=== PATIENT | female | born 1985 | race Caucasian/White ===

== ENCOUNTER 2022-06-12 20:00 | Outpatient (CLI) | payer BC ==
--- NOTE | 2022-06-12 21:58 | Ultrasound Report ---
PROCEDURE: OB First Trimester w/TV INDICATIONS: THREATENED , VAGINAL BLEEDING IN OUTSIDE/PRIOR DATING DATA: Last menstrual period (LMP): 04/29/2022. LMP-based estimated date of delivery (EMERY): 02/03/2023. First dating scan (date and location): 06/12/2022. Estimated date of delivery (EMERY) from first dating scan: 02/03/2023. TECHNIQUE: Real-time scanning was performed of the fetus and maternal pelvic organs, with image documentation. Endovaginal scanning was also performed to better visualize the fetus and maternal ovaries. COMPARISON: None FINDINGS: Embryo: Intrauterine gestational sac diameter is 3.0 cm. Single pole identified with a crown-r ump length of 5.4 mm corresponding to 6 week 2 day gestation. heart rate at 121 bpm. Normal yol k sac seen. Maternal organs: Ovaries are normal and demonstrate a right corpus luteum. The cervix is closed. There are several nabothian cysts present. There is moderate decidual response and 2 small subchorionic hemorrhages measuring 1.1 and 1.6 cm.. IMPRESSION: 1. Single intrauterine with gestational age of 6 weeks 2 days and estimated due date 2022. 2. Closed cervix. 3. There are 2 small perigestational hemorrhage sites which maybe implantation bleeds. 4. Preliminary results given by the manager continuous improvement to the ordering provider immediately following the st udy. Reviewed by: Evelyn Soria MD on 06/12/2022 9:56 PM PST Approved by: Evelyn Soria MD on 06/12/2022 9:56 PM PST Station ID: [id number]
== END 2022-06-12 20:01 | disposition home or self-care (01) ==
LOC: DI 20:00
PROVIDERS: ATTEND Nurse Practitioner Obstetrics & Gynecology
DX: O20.0 Threatened abortion (principal); Z3A.01 Less than 8 weeks gestation of pregnancy
CPT/HCPCS: 84702

== ENCOUNTER 2022-07-10 17:10 | Outpatient (CLI) | payer BC ==
[2022-07-10 17:43] LABS: BASOPHILS # (AUTO) 0.1 10^3/uL (0.0-0.1); BASOPHILS % (AUTO) 0.5 %; EOSINOPHILS # (AUTO) 0.1 10^3/uL (0.0-0.7); EOSINOPHILS % (AUTO) 0.9 %; HCT - HEMATOCRIT 37.8 % (37.0-47.0); HGB - HEMOGLOBIN 12.7 g/dL (12.0-16.0); LYMPHOCYTES # (AUTO) 2.1 10^3/uL (1.5-3.5); LYMPHOCYTES % (AUTO) 20.5 %; MEAN CORPUSCULAR HEMOGLOBIN 30.1 pg (27.0-31.0); MEAN CORPUSCULAR HGB CONC 33.6 g/dL (32.0-36.0); MEAN CORPUSCULAR VOLUME 89.6 fL (81.0-99.0); MEAN PLATELET VOLUME 10.1 fL (7.9-10.8); MONOCYTES # (AUTO) 0.5 10^3/uL (0.0-1.0); MONOCYTES % (AUTO) 4.5 %; NEUTROPHILS # (AUTO) 7.7 10^3/uL (1.5-6.6); NEUTROPHILS % (AUTO) 73.3 %; PLT - PLATELET COUNT 320 10^3/uL (130-450); RED BLOOD COUNT 4.22 10^6/uL (4.20-5.40); RED CELL DISTRIBUTION WIDTH 12.3 % (12.0-15.0); WHITE BLOOD COUNT 10.5 x10^3/uL (4.8-10.8)
[2022-07-11 05:11] LABS: HBsAG SCREEN Negative (Negative)
[2022-07-11 07:09] LABS: RPR Non Reactive (Non Reactive)
[2022-07-11 08:10] LABS: HCV AB Non Reactive (Non Reactive); HIV SCREEN 4TH GENERATION Non Reactive (Non Reactive); VARICELLA-ZOSTER AB IGG 417 index (Immune >165)
== END 2022-07-10 17:11 | disposition home or self-care (01) ==
LOC: LAB 17:10
PROVIDERS: ATTEND Nurse Practitioner Obstetrics & Gynecology
DX: Z36.89 Encounter for other specified antenatal screening (principal)
CPT/HCPCS: 36415; 85025; 86592; 86762; 86787; 86803; 86850; 86900; 86901; 87340; 87389

== ENCOUNTER 2022-11-06 14:27 | Outpatient (CLI) | payer OTHER ==
[2022-11-06 15:43] LABS: HCT - HEMATOCRIT 33.6 % (37.0-47.0); HGB - HEMOGLOBIN 11.3 g/dL (12.0-16.0); MEAN CORPUSCULAR HEMOGLOBIN 30.6 pg (27.0-31.0); MEAN CORPUSCULAR HGB CONC 33.6 g/dL (32.0-36.0); MEAN CORPUSCULAR VOLUME 91.1 fL (81.0-99.0); MEAN PLATELET VOLUME 9.7 fL (7.9-10.8); RED BLOOD COUNT 3.69 10^6/uL (4.20-5.40); RED CELL DISTRIBUTION WIDTH 12.7 % (12.0-15.0); WHITE BLOOD COUNT 10.8 x10^3/uL (4.8-10.8)
== END 2022-11-06 14:28 | disposition home or self-care (01) ==
LOC: LAB 14:27
PROVIDERS: ATTEND Nurse Practitioner Obstetrics & Gynecology
DX: Z36.9 Encounter for antenatal screening, unspecified (principal); Z67.91 Unspecified blood type, Rh negative
CPT/HCPCS: 36415; 82950; 85027; 86850

== ENCOUNTER 2022-11-16 07:34 | Outpatient (CLI) | payer OTHER ==
[2022-11-16 08:12] LABS: GTT GLUCOSE,FASTING 92 mg/dL (74-109)
== END 2022-11-16 07:35 | disposition home or self-care (01) ==
LOC: LAB 07:34
PROVIDERS: ATTEND Nurse Practitioner Obstetrics & Gynecology
DX: O99.810 Abnormal glucose complicating pregnancy (principal)
CPT/HCPCS: 36415; 82951; 82952

== ENCOUNTER 2023-02-12 20:31 | Outpatient (CLI) | payer OTHER ==
--- NOTE | 2023-02-12 21:12 | PROVIDER PROGRESS NOTE ---
- HPI Chief Complaint: Other - Procedures OB Procedure Performed: NST Diagnosis/Indication for NST: Other - Plan Plan: Doris is a 37yo @ 41.2wks gestation by LMP c/w 8.4wk U/S presents to [facility] for outpatient pierre cervical ripening balloon placement in anticipation for medical induction of labor tomorrow morning. She denies vaginal bleeding or leakage of fluid. She denies contractions. She has felt some intermittent estrada hutchison contractions over the past couple of days but nothing consistent or painful. She reports +FM. Pierre cervical ripening balloon placed with 60cc NS intrauterine balloon and 60cc NS vaginal balloon. Pt tolerated placement well. NST reactive. FHR baseline 120s, moderate variability, + accels, no decels Contractions palpate mild intermittently with soft resting tone. Pt released home with precautions. Pt has emergency contact number. Return in 12 hours for removal or sooner PRN. Pt verbalized understanding and agrees to above plan. She denies further questions or concerns at this time.
[2023-02-12 21:16] VITALS: BP 117/85; O2SAT 99
--- NOTE | 2023-02-12 21:54 | Labor Flowsheet ---
Labor Flowsheet Datetime Report Generated by CPN: 02/12/2023 21:54 Datetime: 02/12/2023 21:04 Pulse: 60 SpO2 (%): 98 Datetime: 02/12/2023 20:58 MEDICATIONS Cervical Ripening Agents: Bro Balloon Medication Comments: 60 ml/60 ml, placed via provider Datetime: 02/12/2023 20:45 VITAL SIGNS NBP Sys/Nicolette/Mean (mmHg): 117 : 85 : 92 Temperature (C): 36.7 MATERNAL ASSESSMENT Headache: Generalized Datetime: 02/12/2023 20:40 COMMUNICATION Communication: RN at Bedside; Provider at Bedside
== END 2023-02-12 21:45 | disposition home or self-care (01) ==
LOC: WFO 20:31 → FBP 20:33 → WFO 21:45
PROVIDERS: ATTEND Nurse Practitioner Obstetrics & Gynecology
DX: O48.0 Post-term pregnancy (principal); Z3A.41 41 weeks gestation of pregnancy
CPT/HCPCS: 59025; 59200

== ENCOUNTER 2023-02-13 09:25 | Inpatient (IN) | payer OTHER ==
[2023-02-13] MEDS ORDERED: TRANEXAMIC ACID IN NACL 1,000 MG/100 ML BAG IV PRN (09:56)
[2023-02-13] MEDS ORDERED: hydrALAZINE INJ 20 MG/ML VIAL IVP PRN ×2 (09:56)
[2023-02-13] MEDS ORDERED: SODIUM CHLORIDE FLUSH 0.9% 10 ML SYRINGE IVP PRN (09:56)
[2023-02-13] MEDS ORDERED: TERBUTALINE 1 MG/ML VIAL SUBQ PRN (09:56)
[2023-02-13] MEDS ORDERED: fentaNYL 100 MCG/2 ML VIAL IVP PRN (09:56)
[2023-02-13] MEDS ORDERED: lidocaine 1% 20 ML MDV ID PRN (09:56)
[2023-02-13] MEDS ORDERED: CARBOPROST TROMETHAMINE 250 MCG/ML AMP IM PRN (09:56)
[2023-02-13] MEDS ORDERED: miSOPROStoL 200 MCG TABLET PR PRN (09:56)
[2023-02-13] MEDS ORDERED: OXYTOCIN 10 UNIT/ML VIAL IM PRN (09:56)
[2023-02-13] MEDS ORDERED: METHYLERGONOVINE 0.2 MG/ML VIAL IM PRN (09:56)
[2023-02-13] MEDS ORDERED: NIFEdipine 10 MG CAPSULE PO PRN (09:56)
[2023-02-13] MEDS ORDERED: LABETALOL 20 MG/4 ML SYRINGE IVP PRN ×3 (09:56)
[2023-02-13] MEDS ORDERED: LACTATED RINGERS 1,000 ML IV PRN (09:56)
[2023-02-13] MEDS ORDERED: OXYTOCIN/SODIUM CHLORIDE 500 ML IV PRN (09:56)
[2023-02-13] MEDS ORDERED: miSOPROStoL 200 MCG TABLET BC PRN (09:56)
[2023-02-13] MEDS ORDERED: SODIUM CHLORIDE FLUSH 0.9% 10 ML SYRINGE IVP SCH (10:00)
--- NOTE | 2023-02-13 10:01 | HISTORY & PHYSICAL EXAMINATION ---
Admit History - Visit Reason Visit Reason: Other - : 1 Parity: 0 Premature: 0 Ectopic: 0 : 0 Care: positive: [facility] Risk/History: positive: None Complications This : positive: None - Mother's Labs Mother's Blood Type: positive: B Mother's RH: positive: Negative GBS: positive: Group B Step Negative Rubella Status: positive: Immune - HPI Diagnosis/Indication for NST: Other Vital Signs Temperature 36.9 C 02/13/23 09:50 Heart Rate 77 02/13/23 09:50 Respiratory Rate 16 02/13/23 09:50 Blood Pressure 129/85 H 02/13/23 09:50 O2 Saturation 100 02/13/23 09:50 Temperature 36.9 C 02/13/23 09:50 Heart Rate 77 02/13/23 09:50 Respiratory Rate 16 02/13/23 09:50 Blood Pressure 129/85 H 02/13/23 09:50 O2 Saturation 100 02/13/23 09:50 If not protocol: Oxygen Flow, liters/minute - NST Procedure NST Procedure Start Time 20:45 Stop Time 21:40 - Results and Plan Findings/Impression: NST reassuring. FHR baseline 120s, moderate variability, + accels, no decels Contractions palpate mild intermittently with soft resting tone Review of Systems - Constitutional Constitutional: denies: Fatigue, Fever, Chills, Malaise - Eyes Eyes: denies: Blurred vision, Spots in vision, Dipolpia - Cardiovascular Cariovascular: denies: Irregular heart rate, Palpitations, Chest pain, Edema - Respiratory Respiratory: denies: Cough, Wheezing, SOB at rest - Gastrointestinal Gastrointestinal: denies: Constipation, Diarrhea, Nausea, Vomiting - Genitourinary Genitourinary: denies: Dysuria, Frequency - Integumentary Integumentary: denies: Rash, Pruritis - Neurological Neurological: denies: Headache - Psychiatric Psychiatric: reports: Anxiety. denies: Depression Physical - Abdominal Exam Vital Signs: Temp Pulse Resp BP Pulse Ox O2 Flow Rate 36.9 C 77 16 129/85 H 100 02/13/23 09:50 02/13/23 09:50 02/13/23 09:50 02/13/23 09:50 02/13/23 09:50 Contraction Intensity: positive: Mild Uterine Resting Tone: positive: Soft - Monitoring Heart Rate Baseline: 120 Strip Review: positive: Category I - Presentation Presentation: positive: Vertex - Vaginal Exam Membranes: positive: Membranes ruptured Dilation (in cm): 5 Effacement (%): 100 Station: positive: -2 Cervical Position: positive: Midposition - Speculum Exam Speculum Exam Performed: positive: No Plan for Labor - Plan For Labor I expect patient to be DC'd or transferred within 96 hours.: Yes Plan for Labor: HPI: This 37yo @ 41.3wks gestation by LMP c/w 8.4wk U/S presents to [facility] for medical induction of labor secondary to postdates . She had a cervical ripening balloon placed 12 hours ago for pre-induction cervical ripening. Upon arrival the cervical ripening balloon was removed and pt tolerated removal well. SVE 5/100/-2 and vertex with intact membranes. AROM occurred for induction of labor and was noted to be a moderate amount of clear fluid. FHR baseline 120s, moderate variability, + accels, no decels. Contra ctions palpate mild intermittently with soft resting tone. She has been a patient of [facility] for the duration of her which has been complicated by her advanced maternal age. She did have an elevated 1 hour glucose screening but her 3 hour glucose was WNL. She will be admitted to [facility] for medical induction of labor. She is supported by her partner Jarett, her sister, and her sister in law. Dating criteria: LMP: 04/29/2022 Initial U/S @ 8.4wks c/w LMP dating Serial exams - agree Medical Hx: Melanoma, anxiety Surgical Hx: Arthroscopic left knee (2004), Egg retrieval (2000), Labial cyst removal (2020); Labiaplasty (2020 s/p past trauma); Melanoma removal (2016); [place] teeth removal (2002) Social Hx: Monogamous with male partner. Stopped drinking alcohol due to . Denies current use of tobacco, marijuana or other recreational drugs. Reports that she is safe in current relationship. Family Hx: Ovarian cancer - MGM; Pancreatic cancer - PGM; Skin cancer - PGM, PGF, Mother (caused age age 62, melanoma) Denies family history of congenital anomalies, Cystic Fibrosis or chromosomal abnormalities. Allergies: NKDA, stonefruit Medications: PNV course: B negative, antibody negative Rubella immune; varicella immune RPR non-reactive, HIV non-reactive Hep B neg, Hep C neg Initial U/S @ 8.4wks c/w LMP dating NIPS - negative FAS WNL. Posterior placenta, no previa. Size c/w dating (EFW 76%tile). Glucola 1hr - 141 3 hour GTT WNL (92, 144, 110, 83) COVID-19 vaccine: fully vaccinated x 3 Tdap - third trimester Rhogam - 11/18/2022 GBS negative Physical exam: Normocephalic, atraumatic Heart RRR w/o M/G/R Lungs CTAB Abdomen gravid, soft, nontender FHR baseline 120s, moderate variability, + accels, no decels Contractions palpate mild intermittently with soft resting tone EFW 3800g SVE 5/100/-2 and vertex AROM occurred for a moderate amount of clear fluid Bilateral LE's no edema Mood is good Assessment: 37yo @ 41.3wks gestation Postdates Advanced maternal age FHR Category I GBS negative Rh negative Plan: Admit to [facility] for medical induction of labor secondary to postdates . AROM then expectant management x 12 hours. Intermittent heart rate auscultation. Jacuzzi PRN. Nitrous oxide PRN. Epidural per maternal request. Anticipate .
[2023-02-13 10:42] LABS: BASOPHILS % (AUTO) 0.3 %; EOSINOPHILS % (AUTO) 0.1 %; HCT - HEMATOCRIT 36.1 % (37.0-47.0); HGB - HEMOGLOBIN 12.2 g/dL (12.0-16.0); LYMPHOCYTES # (AUTO) 1.5 10^3/uL (1.5-3.5); LYMPHOCYTES % (AUTO) 13.6 %; MEAN CORPUSCULAR HGB CONC 33.8 g/dL (32.0-36.0); MEAN CORPUSCULAR VOLUME 88.9 fL (81.0-99.0); MEAN PLATELET VOLUME 11.9 fL (7.9-10.8); MONOCYTES # (AUTO) 0.6 10^3/uL (0.0-1.0); MONOCYTES % (AUTO) 5.6 %; NEUTROPHILS # (AUTO) 8.9 10^3/uL (1.5-6.6); PLT - PLATELET COUNT 237 10^3/uL (130-450); RED BLOOD COUNT 4.06 10^6/uL (4.20-5.40); RED CELL DISTRIBUTION WIDTH 12.7 % (12.0-15.0); WHITE BLOOD COUNT 11.1 x10^3/uL (4.8-10.8)
[2023-02-13 10:51] LABS: ALBUMIN 3.5 g/dL (3.2-5.5); ALBUMIN/GLOBULIN RATIO 1.1 (1.0-2.2); BILIRUBIN,TOTAL 0.4 mg/dL (0.2-1.0); CALCIUM 9.2 mg/dL (8.5-10.3); CREATININE 0.8 mg/dL (0.6-1.3); POTASSIUM 3.9 mmol/L (3.5-4.5); TOTAL PROTEIN 6.7 g/dL (6.4-8.9)
[2023-02-13] MEDS ORDERED: diphenhydrAMINE INJ 50 MG/ML VIAL IVP PRN (16:55)
--- NOTE | 2023-02-13 17:05 | PROVIDER PROGRESS NOTE ---
Labor Progress Note - Uterine Monitoring Uterine Monitoring Mode: positive: External toco Contraction Frequency (min/apart): 2-4 Contraction Intensity: positive: Strong Uterine Resting Tone: positive: Soft - Monitoring Monitor Mode: positive: External ultrasound Heart Rate Baseline: 120d Heart Rate Variability: positive: Moderate (6-25 bmp) Accelerations: positive: Present, 15x15 Decelerations: positive: None Strip Review: positive: Category I - Vaginal Exam Dilation (in cm): 7 Effacement (%): 100 Station: -1 - Labor Progress Note Labor Progress Note/Additional Text: S: Breathing through contractions currently in left side lying position. She is feeling a lot of pressure with her contractions and in a side lying position is able to tolerate them better whereas in an upright position she was feeling pressure like she had to push. She has had bloody show and continued vaginal leakage of fluid that remains clear. She is coping well and is well supported by her sisters, her , and her regulatory affairs portfolio leader. O: FHR baseline 120s, moderate variability, + accels, no decels Contractions palpate strong every 2-4 minutes with soft resting tone SVE 7/100/-1 and vertex with cervical edema noted. A: 38yo @ 41.3wks gestation Active labor FHR Category I GBS neg Advanced maternal age Rh negative P: Continue expectant management Intermittent hear rate auscultation. IV Benadryl 25mg now to reduce cervical edema Jacuzzi PRN. Nitrous oxide PRN. Epidural per maternal request. Anticipate .
[2023-02-14] MEDS ORDERED: ceFAZolin (2G) 2 GM in SODIUM CHLORIDE 0.9% MINIBAG 100 ML IV ONE (00:28)
--- NOTE | 2023-02-14 00:36 | PROCEDURE REPORT ---
Hospitalist Procedure Note - Procedure Note Procedure Note: Procedure date: 02/14/2023 Procedure: Manual extraction of placenta Indication: Retained placenta Patient consent: Patient gave verbal consent to procedure due to urgent nature of the procedure Anesthesia: Fentanyl Complications: None Estimated blood loss: Approximately 200 ml, although already had blood loss from delivery and pooled in amniotic sac. Postop diagnosis: Delivery of placenta Procedure summary: The cord and sac were noted to be removed from the vagina, but still attached to the placenta inside the uterus. Patient was in the dorsolithotomy position. Oxytocin was initiated. She received fentanyl for sedation. Using a sterile glove, and was inserted into the vagina and through the cervix to find the plane of the placenta. A plane was gradually made between the lining of the placenta and the uterus and the placenta was grasped and gradually drawn out. As the patient did not tolerate further dissection, the placenta was gradually rotated as were extracting from the vagina. Lower uterine segment pressure was maintained. As the placenta gradually released from the uterus, it was rotated to continue releasing from the uterine wall until the placenta came out. Patient was hemostatic at that time. The placenta was examined and appeared to be intact. There was 1 small area that looked somewhat fibrotic and could be a small fragment seen versus the site of increased attachment. Uterine curetting was not performed as it appeared intact. 2 g of cefazolin IV was administered to the patient. Recommended placenta sent to pathology. Discussed increased risk of hemorrhage as well as endometritis. Gave warning signs to the patient.
[2023-02-14] MEDS ORDERED: WITCH HAZEL/GLYCERIN 1 PAD TOP PRN (01:34)
[2023-02-14] MEDS ORDERED: HYDROCORTISONE 1% CREAM 28 GM TUBE PR PRN (01:34)
--- NOTE | 2023-02-14 01:57 | DELIVERY NOTE ---
Delivery Note - Labor Labor: positive: Induced by ARM - Infant Delivery Method Delivery Method: positive: Spontaneous vaginal delivery - Cervical Ripening Method Cervical Ripening Method: positive: Balloon device - Presentation Presentation: positive: Vertex, DAISY - right occiput anterior - Nuchal Cord Nuchal Cord: positive: None - Amniotic Fluid Description Amniotic Fluid Description: positive: Clear - Episiotomy Type Episiotomy Type: positive: None - Laceration Laceration: positive: 2nd degree, Perineal - Suture Suture Type: positive: Vicryl Suture Size: positive: 2-0 - Delivery Outcome Delivery Outcome: positive: Livebirth - [place]: positive: Placed in direct skin contact with mother, Stimulated, Warmed, Almo used sex: positive: Male - Cord Cord: positive: 3 vessels - Placenta Placenta: positive: Intact, Spontaneous - Estimated Blood Loss Estimated Blood Loss (in cc): 400 - Post Delivery Events Post Delivery Events: positive: No post delivery events - Delivery Comments (Free Text/Narrative) Delivery Comments (Free Text/Narrative): Labor: This 37yo @ 41.3wks gestation by LMP c/w 8.4kw U/S presents to [facility] for medical induction of labor secondary to postdates . She had a pierre cervical ripening balloon placed 02/12/2023 @ 2100 and she presented for removal 02/13/2023 @ 0900 for induction of labor. Upon arrival her cervix was 5/100/-2 and vertex with intact membranes. AROM occurred at 0930 for induction o f labor and was noted to be a moderate amount of clear fluid. FHR demonstrated a Category I pattern throughout labor. Normal labor course. She progressed to anterior lip with inability to control her urge to spontaneously push and she was pushing intermittently. Multiple position changes were attempted to reduce her urge to push. She progressed to c/c/0 at 2212 with consistent pushing with every contraction. : Normal SVB of a viable male infant on 02/13/2023 @ 2325. No nuchal cord. The was placed on maternal abdomen, stimulated, dried, and placed skin to skin. Apgars were 8/9 at 1 and 5 minutes respectively. Pitocin administered via IM injection secondary to infiltrated IV while additional IV access was obtained. The umbilical cord was allowed to stop pulsating at which time it was doubly clamped by CNM and cut by FOB. Cord blood was obtained. 3VC. Fundal massage and gentle cord traction applied for active management of the third stage however placenta remained attached. call center representative physician was notified at 35 minutes . (See physician note for manual delivery of placenta which occurred at 0023). EBL 350mL. Fourth stage: Uterine fundus firm and there is no excessive bleeding. The perineum, vaginal and cervix were inspected and found to have a 2nd degree perineal laceration. Lidocaine infiltrated for local anesthetic and laceration was repaired using a 2-[address]-1 needle in standard fashion and under sterile conditions. Vaginal examination following repair was performed. Tissues well approximated. initiated. Family bonding well. Both mother and baby were left in stable condition.
[2023-02-14] MEDS ORDERED: fentaNYL 100 MCG/2 ML VIAL IVP PRN (02:05)
[2023-02-14] MEDS: IBUPROFEN 800 MG TABLET PO SCH ×4 (02:14→20:42)
[2023-02-14] MEDS: ACETAMINOPHEN 500 MG TABLET PO SCH ×3 (02:15→20:44)
[2023-02-14] MEDS: DOCUSATE SODIUM 100 MG CAPSULE PO SCH ×2 (09:33→20:44)
--- NOTE | 2023-02-14 12:07 | PROVIDER PROGRESS NOTE ---
Subjective - Prog Note Date Prog Note Date: 02/14/23 - Subjective Pt reports feeling: Improved Subjective: Checked on patient this AM. No heavy bleeding or pain. Still swolen in her labia as expected. Trouble voiding last night after delivery and drained 1600ml. Suggested post-void bladder scan to make sure she isn't retaining urine after a long second stage. Also common with significant perineal swelling. If significant PVR, can consider bladder catheter for several days to allow bladder rest and swelling to subside. Discussed risks of hemorrhage with possible retained cotyledon/placental products as well as infection and endometritis risk. Overall looks good this morning and low concern for the time being. Objective - Vital Signs/Intake & Output Vital Signs: Vital Signs x48h Temp Pulse Resp BP Pulse Ox 02/14/23 09:14 209.3 F H 87 16 103/69 100 02/14/23 06:59 98.4 F 70 20 101/68 02/14/23 04:14 98.6 F 88 18 103/63 Intake & Output: Intake & Output 02/11/23 02/12/23 02/13/23 02/14/23 23:59 23:59 23:59 23:59 Intake Total 750 Output Total 3200 Balance -2450 - Lab Results Fish Bones: 02/13/23 10:18 02/13/23 10:18 Other Labs: Lab Results x24hrs 02/14/23 Range/Units 06:11 Blood Type B NEGATIVE Weak D (Du) WEAK-D NEGATIVE Maternal Bleed NEGATIVE (NEGATIVE)
[2023-02-14] MEDS ORDERED: RHO(D) IMMUNE GLOBULIN 300 MCG SYRINGE IVP ONE (16:00)
[2023-02-15] MEDS: ACETAMINOPHEN 500 MG TABLET PO SCH (04:13)
[2023-02-15] MEDS: IBUPROFEN 800 MG TABLET PO SCH ×2 (04:14→10:27)
--- NOTE | 2023-02-15 08:06 | PROVIDER PROGRESS NOTE ---
Subjective - Subjective Subjective: S: She is doing well in her course. She is ambulating and tolerating a regular diet. She had a normal bowel movement without difficulty. She has experienced some difficulty with complete emptying of her bladder. She denies burning or irritation with urination and can start her stream with mild hesitancy but does not feel like she has emptied her bladder completely. Her bleeding is decreased and is light. Her pain is well controlled with oral medications. She is without difficulty and bonding well with her baby. O: Normocephalic, atraumatic. Heart RRR w/o M/G/R, lungs CTAB, abdomen soft and nontender with fundus firm at U-1, perineum intact, light lochia rubra, repair with moderate edema. Mood is good. A: 37yo -->P1 PPD#1 s/p TSVB of viable male 2nd degree perineal laceration intact Rh negative Normal recovery P: Continue routine care and medications. Evaluate for discharged home tomorrow. Objective - Vital Signs/Intake & Output Intake & Output: Intake & Output 02/12/23 02/13/23 02/14/23 02/15/23 23:59 23:59 23:59 23:59 Intake Total 750 Output Total 3200 Balance -2450 - Lab Results Fish Bones: 02/13/23 10:18 02/13/23 10:18 Other Labs: Lab Results x24hrs 02/14/23 Range/Units 06:11 Blood Type B NEGATIVE Weak D (Du) WEAK-D NEGATIVE Maternal Bleed NEGATIVE (NEGATIVE)
--- NOTE | 2023-02-15 08:10 | Discharge Plan ---
Discharge Plan Problem Reviewed?: Yes Disposition: Home, Self Care Condition: Good Diet: Regular Activity Restrictions: No Restrictions Shower Restrictions: No Driving Restrictions: No Weight Bearing: Full Weight Instruction Topics: Vaginal After No Smoking: If you smoke, Please STOP! Call for help. Follow-up with: Opal Magaña CNM, ARNP [Primary Care Provider] - 1 Week ( phone call with Opal Magaña CNM/ERIN 02/23/2023 @ 1030)
--- NOTE | 2023-02-15 08:11 | DISCHARGE SUMMARY ---
Discharge Summary Condition at Discharge: Good Discharge Disposition: 01 Home, Self Care - HOSPITAL COURSE Hospital Course: Date of Admission: 02/13/2023 Date of Discharge: 02/15/2023 Diagnosis on Admission: 1. 37yo @ 41.3wks gestation 2. Postdates 3. Advanced maternal age 4. FHR Category I 5. GBS negative 6. Rh negative Diagnosis on Discharge: 1. 37yo PPD#1 s/p TSVB viable male infant 2. 2nd degree perineal laceration - intact 3. S/p Rhogam secondary to Rh neg pt and Rh pos baby 4. 5. Normal recovery Brief History: [facility] who presented on 02/13/2023 for medical induction of labor secondary to postdates . She had a pierre cervical ripening balloon placed for pre-induction cervical ripening which was followed by [facility] for induction of labor. She progressed to spontaneously deliver a viable male on 02/13/2023 @ 2325 over 2nd degree perineal laceration. She had a retained placenta which required manual removal by floor covering contractor physician. Her bleeding has remained light and her vital signs have been WNL. [place] apgars were 8/9 at 1 and 5 minutes respectively. EBL 350mL. She has been doing well in her course following a brief period of urinary hesitancy which required catheterization. She had mild urinary retention which has improved and she is now urinating without difficulty. She had a normal soft bowel movement without pain or difficulty. She is ambulating and tolerating a regular diet. She is without difficulty and she is bonding well with her baby. Her lochia is light and her pain is well controlled with oral medications. She will be discharged home today on day #1 with instructions to continue taking her vitamin while and to continue taking ibuprofen and tylenol over the counter as needed for pain ma nagement. She intends to follow up with myself in 1 week for routine care or sooner if needed. She has been given precautions to call if she has any worsening fevers, chills, abdominal pain, increased vaginal bleeding or foul smelling vaginal lochia. Physical exam: Normocephalic, atraumatic. Heart RRR w/o M/G/R, lungs CTAB, abdomen soft and nontender with fundus firm at U-1, perineum intact, light lochia rubra. Repair with mild edema. Bilateral LE's no edema. Mood is good. - ALLERGIES Allergies/Adverse Reactions: Allergies Allergy/AdvReac Type Severity Reaction Status Date / Time Fruit Allergy Unknown Verified 02/13/23 15:23 - LABS Result Diagrams: 02/13/23 10:18 02/13/23 10:18
[2023-02-15] MEDS: DOCUSATE SODIUM 100 MG CAPSULE PO SCH (09:17)
[2023-02-15 10:27] VITALS: BP 114/53; O2SAT 100
--- NOTE | 2023-02-15 13:28 | Labor Flowsheet ---
Labor Flowsheet Datetime Report Generated by CPN: 02/15/2023 13:28 Datetime: 02/15/2023 10:22 VITAL SIGNS NBP Sys/Nicolette/Mean (mmHg): 114 : 67 : 78 Pulse: 80 LaborFlag: Labor Datetime: 02/14/2023 11:35 SpO2 (%): 99 Datetime: 02/14/2023 03:27 Membranes Ruptured Date/Time: 02/14/2023 09:30 Membranes Rupture Method: Artificial Amniotic Fluid Color: Clear Amniotic Fluid Amount: Moderate Amniotic Fluid Odor: Normal Datetime: 02/14/2023 00:06 Stage 2 Comments: DR. Rivers at bedside,placenta is retained attempting manual removal of placent a Datetime: 02/13/2023 23:19 FHR Baseline Rate : 115 Variability: Moderate 6-25 bpm STAGE 2 Pushing: Coached on Pushing Pushing Position: Pushing with Contractions Pushing Progress: Presenting Part Visible Datetime: 02/13/2023 23:06 ASSESSMENT A Monitor Mode: External US Datetime: 02/13/2023 22:58 Comments: provider remained at bedside, fhr reviewed Datetime: 02/13/2023 22:55 Accelerations: 15X15 Datetime: 02/13/2023 22:41 Decelerations: Variable Datetime: 02/13/2023 22:38 Actions for Decelerations: Side to Side Datetime: 02/13/2023 22:12 VAGINAL EXAM Dilatation (cm): 10.0 Effacement (%): 100 Datetime: 02/13/2023 20:39 Category: Category I Datetime: 02/13/2023 17:06 MEDICATIONS Analgesics/Sedatives: Benadryl (mg) @ 25 Datetime: 02/13/2023 15:48 COMMUNICATION Communication: Provider at Bedside Communication Comments: provider has been remaining bedside for support. pt. off monitors Datetime: 02/13/2023 15:45 UTERINE ACTIVITY Monitor Mode: External Frequency (min): 2-3 Quality: Strong Duration (sec): 70-100 Pattern: Normal: <= 5 Contractions in 10 Minutes Resting Tone (Palpate): Relaxed Datetime: 02/13/2023 15:30 PATIENT CARE Oxygen Method: Room Air Datetime: 02/13/2023 14:56 Station: 0 Exam by: Archana CNM Datetime: 02/13/2023 14:04 Pain Assessment Comments: back in jacuzzi Comfort Measures: Hot Shower/Tub/Spa; Oracle Database Manager Support Datetime: 02/13/2023 14:02 Patient Care Comments: leaning over head of bed Datetime: 02/13/2023 13:48 Patient Position/Activity: Hands-Knees Datetime: 02/13/2023 13:44 Respirations: 18 Temperature (C): 36.6 Datetime: 02/13/2023 13:30 Monitor Interventions for FHR: Ultrasound Adjusted Datetime: 02/13/2023 12:50 Vaginal Exam Comments: 6-7 Datetime: 02/13/2023 12:25 Provider Notified (Name): Archana Datetime: 02/13/2023 12:18 Pain Relief Measures: Comfort Measures Pain Coping: Breathing Through Contractions Datetime: 02/13/2023 11:31 Stage of : Labor Datetime: 02/13/2023 11:24 PAIN Pain Scale: 4 Pain Presence: Intermittent Pain Type: Contraction Pain Location: Abdomen Datetime: 02/12/2023 20:58 Cervical Ripening Agents: Bro Balloon Medication Comments: 60 ml/60 ml, placed via provider Datetime: 02/12/2023 20:45 MATERNAL ASSESSMENT Headache: Generalized
== END 2023-02-15 12:30 | disposition home or self-care (01) | DRG 807 ==
LOC: WFO 09:25 → FBP 09:27 → WFO 09:55 → FBP 09:56
PROVIDERS: ADMIT Nurse Practitioner Obstetrics & Gynecology; ATTEND Nurse Practitioner Obstetrics & Gynecology
PROC: 0KQM0ZZ Repair Perineum Muscle, Open Approach (ICD-10-PCS; 2023-02-13)
PROC: 10E0XZZ Delivery of Products of Conception, External Approach (ICD-10-PCS; 2023-02-13)
PROC: 10D17Z9 Manual Extraction of Products of Conception, Retained, Via Natural or Artificial Opening (ICD-10-PCS; principal; 2023-02-14)
DX: O48.0 Post-term pregnancy (principal); Z37.0 Single live birth; Z3A.41 41 weeks gestation of pregnancy; O26.893 Other specified pregnancy related conditions, third trimester; O70.1 Second degree perineal laceration during delivery; O73.1 Retained portions of placenta and membranes, without hemorrhage; O90.89 Other complications of the puerperium, not elsewhere classified; R33.9 Retention of urine, unspecified; R39.11 Hesitancy of micturition; Z67.21 Type B blood, Rh negative; O99.344 Other mental disorders complicating childbirth; F41.9 Anxiety disorder, unspecified
CPT/HCPCS: 36415; 59409; 80053; 83033; 84443; 85025; 86850; 86900; 86901; A9270; J1200; J7120